=== PATIENT | female | born 1955 | race Caucasian/White ===

== ENCOUNTER → 2022-08-04 | Emergency (ER) | payer MEDICARE ==
[2022-08-04] VITALS (7 sets, daily range): BP systolic 110–166; BP diastolic 61–80
[~2022-08-04] MED LIST: GABAPENTIN100 MG PO; HYDROCHLOROT25 MG PO; LISINOPRIL10 MG PO; MORPHINE SUL30 M3 PO; MORPHINE SUL30 MG PO; MS CONTIN 100100 MG PO; TRIAMTERENE/HYD1 CAP PO
== END | disposition home or self-care (01) ==
LOC: ED 09:20
DX: M54.50 Low back pain, unspecified (principal); G89.29 Other chronic pain; Z79.891 Long term (current) use of opiate analgesic

== ENCOUNTER 2022-08-05 10:54 | Emergency (ER) | payer MEDICARE ==
[~2022-08-05] VITALS: Ht 162.6 cm; Wt 95.5 kg
[~2022-08-05 10:54] MED LIST changes: -MORPHINE SUL30 MG PO; -MS CONTIN 100100 MG PO; -TRIAMTERENE/HYD1 CAP PO
[2022-08-05 11:00] VITALS: BP 174/84
[2022-08-05 11:55] LABS: HEMATOCRIT 33.4 % (37.0-47.0); HEMOGLOBIN 11.3 g/dl (12.0-16.0); IMMATURE GRANULOCYTES 0.6 % (0.0-5.0); MEAN CELL VOLUME 82.5 fL CALC (80.0-100.0); MEAN CORPUSCULAR HGB 27.9 pG CALC (26.0-32.0); MEAN CORPUSCULAR HGB CONC 33.8 g/dL CAL (32.0-36.0); NEUT# 7.15 thou/uL (2.00-7.15); RED BLOOD COUNT 4.05 mill/uL (4.20-5.60)
[2022-08-05 12:53] LABS: ALBUMIN 4.1 g/dL (3.2-5.0); ALKALINE PHOSPHATASE 71 u/l (38-126); BUN 17 mg/dL (8-23); BUN/CREATININE RATIO 25 (12-20 (CALC)); CARBON DIOXIDE 28 mmol/l (22-30); CREATININE 0.7 mg/dL (0.5-1.0); GFR FOR AFR.AMER. > 60 ML/MIN (>=60 (CALC)); GFR OTHER RACES > 60 ML/MIN (>=60 (CALC)); POTASSIUM 4.1 mmol/l (3.5-5.1); SGOT/AST 33 u/l (9-36); TOTAL PROTEIN 7.3 g/dL (6.3-8.2)
[2022-08-05 12:57] LABS: ANION GAP 11 (6-22 (CALC)); BILIRUBIN, TOTAL 0.7 mg/dL (0.0-1.4); CHLORIDE 91 mmol/l (95-108); SODIUM 126 mmol/l (137-146)
[2022-08-06] MEDS ORDERED: TRIAMTERENE/HYD1 CAP PO (09:47)
[2022-08-06] MEDS ORDERED: GABAPENTIN100 MG PO (10:37)
== END 2022-08-05 16:40 | disposition home or self-care (01) ==
LOC: ED 10:54
PROVIDERS: Nurse Practitioner
DX: G89.29 Other chronic pain (principal); M54.50 Low back pain, unspecified; M79.605 Pain in left leg; M79.604 Pain in right leg; G62.9 Polyneuropathy, unspecified

== ENCOUNTER 2022-08-05 19:27 | Observation (INO) | payer MEDICARE ==
[~2022-08-05] VITALS: Ht 162.6 cm; Wt 95.5 kg
[2022-08-05] VITALS (13 sets, daily range): BP systolic 112–159; BP diastolic 55–85
--- NOTE | 2022-08-05 19:27 | NUR ---
PT IN ROOM VIA WHEELCHAIR
--- NOTE | 2022-08-05 20:30 | NUR ---
Reassessment of patient completed. No distress noted.
--- NOTE | 2022-08-05 21:43 | NUR ---
PT IN ROOM WATCHING TV AWAITING FOR BED TO [facility]
--- NOTE | 2022-08-05 22:40 | NUR ---
REPORT GIVEN TO KUSUM RODARTE. PT IS GOING TO [facility]
--- NOTE | 2022-08-05 23:35 | NUR ---
PT TO [facility] VIA WHEELCHAIR
--- NOTE | 2022-08-05 23:36 | NUR ---
RECIEVED FROM ER. PT APPEARS STABLE. BREATHING EVEN AND NON LABORED. PT DENIES PAIN. LUNG SOUNDS CLEAR. ABDOMEN NONDISTENDED, NON-TENDER WITH ACTIVE BOWEL SOUNDS. PT ORIENTATED TO ROOM ADN CALL LIGHT USE. PT DENIES ANY NEEDS AT THIS TIME. CALL LIGHT INREACH. ALL SAFETY PRECAUTIONS IN PLACE AT THIS TIME.
[2022-08-06 04:00] VITALS: BP 125/69
--- NOTE | 2022-08-06 04:00 | NUR ---
PT ASLEEP IN ROOM. BREATHING REMAINS THE SAME. IV SITE PATENT. CALL LIGHT IN REACH. ALL SAFETY PRECAUTIONS IN PLACE AT THIS TIME.
[2022-08-06 06:19] VITALS: BP 152/76
[2022-08-06 06:20] VITALS: BP 152/76
[2022-08-06 06:49] LABS: ANION GAP 16 (6-22 (CALC)); BUN 22 mg/dL (8-23); BUN/CREATININE RATIO 32 (12-20 (CALC)); CARBON DIOXIDE 26 mmol/l (22-30); CHLORIDE 95 mmol/l (95-108); CREATININE 0.7 mg/dL (0.5-1.0); GFR FOR AFR.AMER. > 60 ML/MIN (>=60 (CALC)); GFR OTHER RACES > 60 ML/MIN (>=60 (CALC)); MAGNESIUM 1.8 mg/dL (1.6-2.3); POTASSIUM 4.3 mmol/l (3.5-5.1)
[2022-08-06 07:01] LABS: SODIUM 133 mmol/l (137-146)
[2022-08-06] MEDS ORDERED: TRIAMTERENE/HYD1 CAP PO (09:47)
[2022-08-06] MEDS ORDERED: GABAPENTIN100 MG PO (10:37)
--- NOTE | 2022-08-06 10:49 | NUR ---
PATIENT NOTED TO BE DROWSY DIRECTLY AFTER MORPHINE 90MG MED ADMINISTRATION. ASKED PT DOES SHE HAVE ANY HOME MEDS IN HER ROOM THAT SHE HAS SELF ADMINISTERED. PT STATED THAT SHE ONLY SELF ADMINISTER GABAPENTIN. PERMISSION GRANTED FROM PT FOR ME TO SEARCH HER PERSONAL BELONGS TO RETRIVE HOME MEDICATION. [employer] SPECIALIST FOUND WITH SEVERAL UNIDENTIFIED MEDICATION. MEDICATION LABELED AND GIVEN TO PHARMACIST ELIANE. WILL CONT TO MONITOR FOR S/S OF OVERDOSE.
[2022-08-06 14:10] VITALS: BP 148/78
[2022-08-06 14:19] VITALS: BP 148/78
[2022-08-06 19:27] VITALS: BP 135/72
--- NOTE | 2022-08-06 20:03 | NUR ---
MARIE REPORT COMPLETED AND PT AND IN BED WITH EYES OPEN AND ABLE TO MAKE NEEDS KNOWN. RESPIRATION EVEN AND NON LABORED. DENIES PAIN AND DISCOMFORT AT THOS TIME. BED IN LOW POSITION AND CALL LIGHT WITHIN REACH. wILL CONTINUE TO OBSERVE
[2022-08-07 04:08] VITALS: BP 113/54
[2022-08-07 07:36] VITALS: BP 121/55
[2022-08-07 16:25] VITALS: BP 159/72
[2022-08-07 19:40] VITALS: BP 156/70
[2022-08-08 04:50] VITALS: BP 109/66
[2022-08-08 06:26] VITALS: BP 139/71
[2022-08-08] MEDS ORDERED: MS CONTIN 100100 MG PO ×2 (12:42→13:08)
[2022-08-08] MEDS ORDERED: MORPHINE SUL30 MG PO ×2 (13:06→13:08)
[2022-08-08 19:00] VITALS: BP 138/61
[2022-08-08 19:09] VITALS: BP 138/61
--- NOTE | 2022-08-08 20:13 | NUR ---
PATIENT ASSEMENT COMPLETED AT THIS TIME. PUREWICK DRAINING CLEAR YELLOW URINE CALL LIGHT AND BEDSDIE TABLE WITHIN REACH.
--- NOTE | 2022-08-09 00:30 | NUR ---
PATIENT HAVING DIFFICULTY HAVING A BOWEL MOVEMENT. OFFERED ORDERED SUPPOSITORY, PATIENT DECLINED. STATED SHE NEEDED PAIN MEDICATION. PATIENT SLEEPING UPON WRITTERS RETURN.
[2022-08-09 04:22] VITALS: BP 98/49
--- NOTE | 2022-08-09 06:17 | NUR ---
SCHEDULED MORPHINE NOT GIVEN. PATIENT SLEEPING.
[2022-08-09 06:47] VITALS: BP 96/54
[2022-08-09 15:31] VITALS: BP 126/67
[2022-08-09 19:22] VITALS: BP 115/59
[2022-08-10 04:41] VITALS: BP 99/59
[2022-08-10 05:01] LABS: ANION GAP 12 (6-22 (CALC)); BUN 21 mg/dL (8-23); BUN/CREATININE RATIO 26 (12-20 (CALC)); CARBON DIOXIDE 29 mmol/l (22-30); CHLORIDE 91 mmol/l (95-108); CREATININE 0.8 mg/dL (0.5-1.0); GFR FOR AFR.AMER. > 60 ML/MIN (>=60 (CALC)); GFR OTHER RACES > 60 ML/MIN (>=60 (CALC)); POTASSIUM 3.6 mmol/l (3.5-5.1); SODIUM 128 mmol/l (137-146)
[2022-08-10 05:03] LABS: HEMATOCRIT 33.8 % (37.0-47.0); HEMOGLOBIN 10.9 g/dl (12.0-16.0); IMMATURE GRANULOCYTES 0.1 % (0.0-5.0); MEAN CORPUSCULAR HGB 28.3 pG CALC (26.0-32.0); MEAN CORPUSCULAR HGB CONC 32.2 g/dL CAL (32.0-36.0); NEUT# 4.34 thou/uL (2.00-7.15); RED BLOOD COUNT 3.85 mill/uL (4.20-5.60); RED CELL DISTRI WIDTH 13.1 % (11.5-15.5)
[2022-08-10 05:06] LABS: MEAN CELL VOLUME 87.8 fL CALC (80.0-100.0)
[2022-08-10 05:58] VITALS: BP 101/51
[2022-08-10 06:00] VITALS: BP 101/51
[2022-08-10 14:25] VITALS: BP 124/47
--- NOTE | 2022-08-10 15:01 | NUR ---
NURSE TO NURSE REPORT CALLED TO LÁZARO MCPHERSON AT [facility]. STATES THAT SHE IS READY TO RECIEVE PT.
--- NOTE | 2022-08-10 15:45 | NUR ---
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 pt stable no complaints. vitals wnl.
== END 2022-08-10 15:15 ==
LOC: ED 19:27 → ED-I 19:41 → ED 20:00 → MS2 20:00
PROVIDERS: Nurse Practitioner; ADMIT Internal Medicine; ATTEND Internal Medicine
DX: M47.26 Other spondylosis with radiculopathy, lumbar region (principal); M41.9 Scoliosis, unspecified; R62.7 Adult failure to thrive; I10 Essential (primary) hypertension; G62.9 Polyneuropathy, unspecified; K59.09 Other constipation; Z23 Encounter for immunization; Z79.891 Long term (current) use of opiate analgesic; Z59.1 Inadequate housing; Z20.822 Contact with and (suspected) exposure to COVID-19; M79.604 Pain in right leg; M79.605 Pain in left leg; R20.0 Anesthesia of skin; G89.29 Other chronic pain; M54.50 Low back pain, unspecified
CPT/HCPCS: J1650